=== PATIENT | female | born 1950 | race Caucasian/White ===

== ENCOUNTER 2016-03-09 19:14 | Emergency (ER) | payer OTHER ==
[~2016-03-09] VITALS: Ht 175.3 cm; Wt 117.9 kg
[~2016-03-09 19:14] MED LIST: AMOXICILLIN500 MG PO; AMOXIL 875 MG875 MG PO; AMOXIL500 MG PO; BACTROBAN OINT.22 GM TOP; HCTZ/TRIAMTEREN1 TA3 PO; IBUPROFEN800 MG PO; OSTEO BI-FLEX 21 TAB PO; PROAIR HFA0.09 MG/Ac; VICODIN 300 MG-1 TAB PO
--- NOTE | 2016-03-09 21:00 | ED GENERAL ADULT ---
History of Present Illness General Chief Complaint: General Adult Stated Complaint: ?HIGH BLOOD PRESSURE Source: patient Exam Limitations: no limitations Vital Signs & Intake/Output Vital Signs & Intake/Output Vital Signs Date Time Temp Pulse Resp B/P Pulse O2 O2 Flow FiO2 Ox Delivery Rate 03/09 2150 87 144/72 03/097 97.3 96 20 180/102 97 Room Air ED Intake and Output 03/10 0000 03/09 1200 Intake Total Output Total Balance Patient 260 lb Weight Allergies Coded Allergies: MDX - Acetaminophen (From PERCOCET) (UNKNOWN 06/28/13) MDX - Aspirin (From PERCODAN) (UNKNOWN 06/28/13) MDX - Oxycodone (From PERCOCET) (UNKNOWN 06/28/13) MDX - Tetracycline (TETRACYCLINE) (UNKNOWN 06/28/13) Reconcile Medications Albuterol Sulfate (Proair Hfa) 0.09 MG/Actuation DEDE COUGH (Reported) Amoxicillin 500 MG CAPSULE 1 TAB PO TID INFECTION (Reported) Amoxicillin (Amoxil) 500 MG CAP 1 TAB PO TID FINGER INFECTION Chondroitin Sulfate/Glucosam (Osteo Bi-Flex 200 MG-250 MG) 1 TAB TAB 1 TAB PO DAILY JOINTS (Reported) Ibuprofen 800 MG TABLET 1 TAB PO Q8P PRN PAIN (Reported) Sulfamethoxazole/Trimethoprim (Bactrim Ds Tablet) 800 MG-160 MG TABLET 1 TAB PO BID UTI TRIAMTERENE/HYDROCHLOROTHIAZID (Triamterene-Hctz 37.5-25 MG Tb) 37.5 MG-25 MG TABLET 0.5 TAB PO DAILY BP (Reported) Triage Note: PT IS REQUESTING EVALUATION DUE TO HIGH BLOOD PRESSURE. SHE RANDOMLY CHECKED IT AT [facility] AND IT WAS 96 DIASTOLIC. HERE AT THE ED SHE IS 180/102. DENIED HEADACHES. SHE IS CURRENLTY ON ANTI-HYPERTENSIVES AND HAS BEEN TAKING THEM PRESCRIBED. Triage Nurses Notes Reviewed? yes Onset: Abrupt Duration: day(s): (2) Timing: multiple episodes today Injury Environment: home Severity: moderate No Modifying Factors: none Associated Symptoms: URINARY FREQUENCY, NECK PAIN, LEG SWELLING HPI: This is a 65-year-old female who presents to the ER for chief complaint of elevated blood pressure. She states that she is also worried about MRSA infection. She's been having dysuria and frequency with past 2 days. She states that ever since she went on a combination of triamterene and hydrochlorothiazide that her bladder does not handle it well. History of previous MRSA infections which makes the patient nervous. She also complains of some chronic and chronic neck pain. No fever or chills. She complains of increased fluid retention in her lower extremities. The patient follows up routinely with Dr. Lyn. Going to follow up with Dr. Lyn's office but when she checked her blood pressure at the pharmacy and found it to be high she decided to come to the ER for evaluation instead. Past History Travel History Traveled to [place] past 21 day No Medical History Any Pertinent Medical History? see below for history Neurological: NONE EENT: NONE Cardiovascular: hypertension Respiratory: NONE Gastrointestinal: NONE Hepatic: NONE Renal: NONE Musculoskeletal: chronic back pain Psychiatric: NONE Endocrine: NONE Blood Disorders: NONE Cancer(s): NONE History of CDIFF: No Surgical History Surgical History: non-contributory Psychosocial History What is your primary language Portuguese Tobacco Use: Never used Family History Hx Contributory? No Review of Systems Review of Systems Constitutional: Reports: chills. Denies: fever. EENTM: Reports: no symptoms. Respiratory: Denies: cough, short of breath, sputum production. Cardiovascular: Denies: chest pain. GI: Reports: no symptoms. Genitourinary: Reports: dysuria, frequency, urgency. Denies: pain. Musculoskeletal: Reports: no symptoms. Skin: Reports: no symptoms. Neurological/Psychological: Reports: anxiety. Hematologic/Endocrine: Reports: polyuria. Denies: bruising, bleeding, polydipsia. Immunologic/Allergic: Denies: splenectomy. All Other Systems: Reviewed and Negative Physical Exam Physical Exam General Appearance: well developed/nourished, alert, awake, anxious, mild distress, obese Head: atraumatic, normal appearance Eyes: Bilateral: normal appearance, PERRL, EOMI. Ears, Nose, Throat: normal pharynx, normal ENT inspection, hearing grossly normal Neck: normal inspection, supple, full range of motion Respiratory: normal breath sounds, chest non-tender, no respiratory distress Cardiovascular: regular rate/rhythm Peripheral Pulses: 2+ radial (R), 2+ radial (L) Gastrointestinal: normal bowel sounds, soft, non-tender Extremities: swelling (2+ BILATERAL) Neurologic/Psych: awake, alert, oriented x 3, ANXIOUS Skin: intact, normal color, warm/dry Core Measures ACS in differential dx? No CVA/TIA Diagnosis: No Severe Sepsis Present: No Septic Shock Present: No Progress Differential Diagnoses I considered the following diagnoses in my evaluation of the patient: [HTN, UTI, ANXIETY] Plan of Care: Orders Procedure Date/time Status Add-on Test (ER Only) 03/09 2114 Active TROPONIN LEVEL 03/09 2114 Complete COMPREHENSIVE METABOLIC PANEL 03/09 2114 Complete CBC WITHOUT DIFFERENTIAL 03/09 2114 Complete EKG 03/09 2114 Active CULTURE,URINE 03/09 1945 Active URINALYSIS 03/09 1943 Complete Current Medications Sig/Te Start time Last Medication Dose Stop Time Status Admin Acetaminophen 1,000 MG ONCE ONE 03/09 2129 CAN (Ofirmev) 03/09 2143 N/A 1 UNIT (No Carrier) Laboratory Tests 03/09/162128: Anion Gap 9, Estimated GFR > 60, BUN/Creatinine Ratio 21.4, Glucose 120 H, Calcium 8.8, Total Bilirubin 0.6, AST 25, ALT 43, Alkaline Phosphatase 85, Troponin I 0.01, Total Protein 6.0 L, Albumin 3.6, Globulin 2.4, Albumin/ Globulin Ratio 1.5, CBC w Diff NO MAN DIFF REQ, RBC 4.25, MCV 90.2, MCH 30.7, RDW 12.8, MPV 7.9, Gran % 54.7, Lymphocytes % 31.3, Monocytes % 10.9 H, Eosinophils % 2.4, Basophils % 0.7, Absolute Granulocytes 3.7, Absolute Lymphocytes 2.1, Absolute Monocytes 0.7 H, Absolute Eosinophils 0.2, Absolute Basophils 0, PUBS MCHC 34.1 03/09/161945: Urine Color YEL, Urine Clarity HAZY H, Urine pH 6.0, Ur Specific [place] >= 1.030, Urine Protein TRACE H, Urine Ketones NEG, Urine Nitrite POS H, Urine Bilirubin NEG, Urine Urobilinogen 0.2, Ur Leukocyte Esterase SMALL H, Ur Microscopic SEDIMENT EXAMINED, Urine RBC 3-5, Urine WBC 50-75 H, Ur Epithelial Cells MANY H, Urine Hemoglobin SMALL H, Urine Glucose NEG Microbiology 03/09 1945 URINE ROUT: Urine Culture - RECD MANUAL BP 144/72. LABS WNL. EKG WNL. PATIENT WILL BE TREATED FOR UTI. (ROBERT ALCARAZ,JAMAR) Initial ED EKG: NSR Departure Departure Time of Disposition: 2224 Disposition: HOME OR SELF CARE Condition: Stable Clinical Impression Primary Impression: UTI (urinary tract infection) Secondary Impressions: Elevated blood pressure reading Referrals: JENNIFER ALCARAZ,KRISTINE Gagnon (PCP/Family) Additional Instructions: Take the Bactrim as directed. Your prescription is at [facility] in [place]. Follow up with in the office. Return to the ER for any changing or worsening symptoms. Departure Forms: Customer Survey General Discharge Information Prescriptions: Current Visit Scripts Sulfamethoxazole/Trimethoprim (Bactrim Ds Tablet) 1 TAB PO BID #14 TAB Critical Care Note Critical Care Note Critical Care Time: non-applicable
[2016-03-09 21:40] LABS: ABSOLUTE BASOPHIL COUNT 0 /CUMM (0.0-0.2); ABSOLUTE EOSINOPHIL COUNT 0.2 /CUMM (0.0-0.7); ABSOLUTE GRANULOCYTE CT 3.7 /CUMM (1.4-6.5); ABSOLUTE LYMPH COUNT 2.1 /CUMM (1.2-3.4); ABSOLUTE MONOCYTE COUNT 0.7 /CUMM (0.10-0.60); BASOPHIL % 0.7 % (0.0-2.0); EOSINOPHIL % 2.4 % (0-5); GRANULOCYTE % 54.7 % (42.2-75.2); HEMATOCRIT 38.3 % (37-47); MEAN CORPUSCULAR HGB 30.7 PG (27.0-31.0); MEAN CORPUSCULAR HGB CONC 34.1 G/DL (33.0-37.0); MEAN CORPUSCULAR VOLUME 90.2 FL (81.0-99.0); MEAN PLATELET VOLUME 7.9 FL (7.4-10.4); PLATELET COUNT 145 /CUMM (130-400); RBC DISTRIBUTION WIDTH 12.8 % (11.5-14.5); RED BLOOD CELL CT 4.25 /CUMM (4.20-5.40); WHITE BLOOD CELL COUNT 6.8 /CUMM (4.8-10.8)
[2016-03-09 21:50] VITALS: BP 144/72
[2016-03-09] MEDS ORDERED: BACTRIM DS TAB1 EACH PO (22:26)
== END 2016-03-09 22:44 ==
LOC: ERH 19:14
PROVIDERS: Emergency Medicine
DX: R03.0 Elevated blood-pressure reading, without diagnosis of hypertension (principal); N39.0 Urinary tract infection, site not specified
CPT/HCPCS: 81001; 87086; 93005; 93010; J0131

== ENCOUNTER 2016-03-26 14:57 | Emergency (ER) | payer OTHER ==
[~2016-03-26] VITALS: Ht 175.3 cm; Wt 113.4 kg
[~2016-03-26 14:57] MED LIST changes: +BACTRIM DS TAB1 EACH PO
--- NOTE | 2016-03-26 16:34 | ED CARDIAC/CP/PALPITATIONS ---
See Addendum History of Present Illness General Chief Complaint: General Adult Stated Complaint: ?HIGH BLOOD PRESSURE? Source: patient Exam Limitations: no limitations Allergies Coded Allergies: MDX - Acetaminophen (From PERCOCET) (UNKNOWN 06/28/13) MDX - Aspirin (From PERCODAN) (UNKNOWN 06/28/13) MDX - Oxycodone (From PERCOCET) (UNKNOWN 06/28/13) MDX - Tetracycline (TETRACYCLINE) (UNKNOWN 06/28/13) Reconcile Medications Albuterol Sulfate (Proair Hfa) 0.09 MG/Actuation DEDE COUGH (Reported) Amoxicillin 500 MG CAPSULE 1 TAB PO TID INFECTION (Reported) Amoxicillin (Amoxil) 500 MG CAP 1 TAB PO TID FINGER INFECTION Chondroitin Sulfate/Glucosam (Osteo Bi-Flex 200 MG-250 MG) 1 TAB TAB 1 TAB PO DAILY JOINTS (Reported) Ibuprofen 800 MG TABLET 1 TAB PO Q8P PRN PAIN (Reported) Nitrofurantoin Monohyd/M-Cryst (Macrobid 100 MG Capsule) 100 MG CAPSULE 1 CAP PO BID UTI with food Sulfamethoxazole/Trimethoprim (Bactrim Ds Tablet) 800 MG-160 MG TABLET 1 TAB PO BID UTI TRIAMTERENE/HYDROCHLOROTHIAZID (Triamterene-Hctz 37.5-25 MG Tb) 37.5 MG-25 MG TABLET 0.5 TAB PO DAILY BP (Reported) Triage Note: PT STATES HER BP IS HIGH AND SHE HASN'T FELT GOOD FOR A WEEK. PT WAS HERE 10 DAYS AGO AND PLACED ON ABX FOR UTI. PT CALLED HER PCP STATES SHE FEELS BETTER BUT SHE STILL FEELS LIKE SHE HAS A UTI. PT STATES SHE FINISHED HER ABX. Triage Nurses Notes Reviewed? yes HPI: This patient is a 65 year-old female with a past medical history including hypertension and chronic back pain who presented to the emergency department today for multiple complaints. The patient reported that a couple weeks ago she was diagnosed with a urinary tract infection for which she recently finished her course of Bactrim. She reported that the Bactrim did seem to help, but that she is still having symptoms such as urgency and pressure. She denied any blood in the urine or urinary burning. The patient reported, "I had a MRSA infection which went through my body. I think I must have breathed it in and it causes recurrent bladder infections." She reported that several days ago she was having intermittent lower back pain, "so I think it is in my kidneys." She denied any current lower back pain. The patient reported that her blood pressure has been running high. She reported that she was seen here in the emergency department for this previously. She reported that her blood pressure usually goes up when her urine infection is back. She reported that she is feeling weak. She reported that her body seems, "swollen." She reported, "I just don't feel well." she denied any chest pain, difficulty breathing, fevers. She did report chills. She denied any abdominal pain. She reported intermittent nausea with no vomiting. (JAMES ESPANA PA-C) Vital Signs & Intake/Output Vital Signs & Intake/Output Vital Signs Date Time Temp Pulse Resp B/P Pulse O2 O2 Flow FiO2 Ox Delivery Rate 03/26 1945 98.2 80 22 145/78 97 03/26 1502 98.8 94 16 169/82 96 Room Air ED Intake and Output 03/27 0000 03/26 1200 Intake Total Output Total Balance Patient 250 lb Weight Past History Travel History Traveled to [place] past 21 day No Medical History Any Pertinent Medical History? see below for history Neurological: NONE EENT: NONE Cardiovascular: hypertension Respiratory: NONE Gastrointestinal: NONE Hepatic: NONE Renal: NONE Musculoskeletal: chronic back pain Psychiatric: NONE Endocrine: NONE Blood Disorders: NONE Cancer(s): NONE History of CDIFF: No Surgical History Surgical History: non-contributory Psychosocial History What is your primary language Italian Tobacco Use: Quit >30 days ago ETOH Use: denies use Illicit Drug Use: denies illicit drug use Family History Hx Contributory? No (JAMES ESPANA PA-C) Review of Systems Review of Systems Constitutional: Reports: see HPI. EENTM: Reports: no symptoms. Respiratory: Reports: no symptoms. Cardiovascular: Reports: no symptoms. GI: Reports: see HPI. Genitourinary: Reports: see HPI. Musculoskeletal: Reports: see HPI. Skin: Reports: no symptoms. Neurological/Psychological: Reports: no symptoms. All Other Systems: Reviewed and Negative (JAMES ESPANA PA-C) Physical Exam Physical Exam Cardiovascular: regular rate/rhythm, normal peripheral pulses, no JVD. No carotid bruits. No murmurs, rubs or gallops Comments: Well-developed well-nourished person in no acute distress HEENT: Normal EENT exam, head normocephalic, moist mucous membranes PERRLA bilaterally. No papilledema on funduscopic examination Neck: Supple. No lymphadenopathy. Full range of motion. No midline tenderness Back: Normal gait. Normal inspection. No CVA tenderness bilaterally Respiratory: Chest nontender. No respiratory distress. Speaking in full sentences. Lungs clear to auscultation bilaterally with no wheezes, rales, or rhonchi Abdomen: Soft, nontender and nondistended Extremity: Normal and equal pulses. Neuro: Alert oriented x3, cranial nerves II through XII grossly intact. Skin: No appreciable rash on exposed skin, skin is warm and dry. Psych: Mood and affect is normal Core Measures ACS in differential dx? Yes Severe Sepsis Present: No Septic Shock Present: No (JOVI LEW,JAMES) Progress Differential Diagnosis: AMI, aortic dissection, atrial fibrillation, CHF/pulm edema, costochondritis, hyperkalemia, hyperthyroid, hyperventilation, musculoskeletal pain, myocarditis, pancreatitis, pericarditis, pneumonia, PSVT, PUD/GERD, PVCs/PACs, unstable angina, urinary tract infection, pyelonephritis Diagnostic Imaging: Viewed by Me: Radiology Read. Discussed w/RAD: Radiology Read. CXR Impression: PATIENT: MELISSA MARTINEZ PRESENT AGE: 65 PATIENT ACCOUNT NO: [id number] : 52 LOCATION: [facility] ORDERING PHYSICIAN: JAMES ESPANA PA-C SERVICE DATE: 03/26/16 EXAM TYPE: RAD - XRY-CHEST XRAY, PA AND LATERAL EXAMINATION: XR CHEST CLINICAL INFORMATION: Left arm pain. COMPARISON: None TECHNIQUE: 2 views of the chest were obtained. FINDINGS: The cardiomediastinal silhouette is within normal limits. There are low lung volumes , though no airspace opacities are visible. There is no obvious pulmonary vascular congestion. No pleural effusions are seen. The osseous structures are normal. IMPRESSION: No acute process. Low lung volumes. DICTATED BY: RONNA URBINA MD DATE/TIME DICTATED:03/26/161726 DAIRY INSPECTOR:JOSE DATE/ TIME TRANSCRIBED:03/26/161726 CONFIDENTIAL, DO NOT COPY WITHOUT APPROPRIATE AUTHORIZATION. <Electronically signed in Other Vendor System> SIGNED BY: RONNA URBINA MD 03/26/16 1731 Initial ED EKG: normal intervals, 81 bpm, no significant change from prior EKG Comments: 03/26/2016 7:08:33 PM: I was at the patient's bedside updated her on her laboratory studies. Unremarkable chest x-ray. No increase in white blood cell count. Troponin not elevated. EKG unchanged from prior. Persistent urinary tract infection. The patient is requesting to speak with someone regarding her social situation. She is reporting that she is currently living out of her car and is having a hard time taking care of herself and her family. Case management is currently at the patient's bedside for evaluation. (JOVI LEW,JAMES) Plan of Care: Orders Procedure Date/time Status CULTURE,URINE 03/26 1622 Active BLOOD CULTURE 03/26 1622 Active URINALYSIS 03/26 1622 Complete THYROID STIMULATING HORMONE 03/26 162 Complete TROPONIN LEVEL 03/26 162 Complete MAGNESIUM 03/26 162 Complete LIPID PANEL 03/26 1622 Complete LACTIC ACID 03/26 1623 Complete FREE T4 03/26 1622 Complete COMPREHENSIVE METABOLIC PANEL 03/26 1623 Complete CBC WITHOUT DIFFERENTIAL 03/26 1622 Complete B-TYPE NATRIURETIC PEP (BNP) 03/26 1623 Complete EKG 03/26 1623 Active Laboratory Tests 03/26/16 1923: Lactic Acid Cancelled 03/26/16 1720: Anion Gap 8, Estimated GFR > 60, BUN/Creatinine Ratio 15.0, Glucose 106 H, Lactic Acid 0.9, Calcium 8.8, Magnesium 1.9, Total Bilirubin 0.5, AST 31, ALT 50 , Alkaline Phosphatase 79, Troponin I < 0.01, Snb-S-Hbwfroopcve Pept 35.1, Total Protein 6.3, Albumin 3.8, Globulin 2.5, Albumin/Globulin Ratio 1.5, Triglycerides 152 H, Cholesterol 184, LDL Cholesterol, Calc 112, HDL Cholesterol 42, Cholesterol/HDL Ratio 4, TSH 1.490, Free T4 0.93, CBC w Diff NO MAN DIFF REQ, RBC 4.36, MCV 90.7, MCH 30.2, RDW 13.1, MPV 8.4, Gran % 54.0, Lymphocytes % 33.3, Monocytes % 9.9 H, Eosinophils % 2.0, Basophils % 0.8, Absolute Granulocytes 3.3, Absolute Lymphocytes 2.0, Absolute Monocytes 0.6, Absolute Eosinophils 0.1, Absolute Basophils 0, PUBS MCHC 33.3 03/26/16 1630: Urine Color YEL, Urine Clarity CLEAR, Urine pH 6.0, Ur Specific [place] >= 1.030 , Urine Protein TRACE H, Urine Ketones TRACE H, Urine Nitrite NEG, Urine Bilirubin NEG, Urine Urobilinogen 0.2, Ur Leukocyte Esterase SMALL H, Ur Microscopic SEDIMENT EXAMINED, Urine RBC 1-3, Urine WBC 5-10 H, Ur Epithelial Cells FEW, Urine Hemoglobin SMALL H, Urine Glucose NEG Microbiology 03/26 1747 BLOOD: Blood Culture - RECD 03/26 1720 BLOOD: Blood Culture - RECD 03/26 1630 URINE ROUT: Urine Culture - RECD Departure Departure Disposition: HOME OR SELF CARE Condition: Stable Clinical Impression Primary Impression: Urinary tract infection Qualifiers: Urinary tract infection type: site unspecified Hematuria presence: without hematuria Qualified Code: N39.0 - Urinary tract infection, site not specified Referrals: JENNIFER ALCARAZ,KRISTINE Gagnon (PCP/Family) Additional Instructions: Take antibiotics as prescribed and for its full duration. Please follow-up with your primary care physician. Return to the emergency department for any worsening symptoms or concerns. Departure Forms: Customer Survey General Discharge Information Prescriptions: Current Visit Scripts Nitrofurantoin Monohyd/M-Cryst (Macrobid 100 MG Capsule) 1 CAP PO BID #14 CAP with food (JAMES ESPANA PA-C) PA/RESTAURANT TEAM MEMBER Co-Sign Statement Statement: ED Attending supervision documentation- x I saw and evaluated the patient. I have also reviewed all the pertinent lab results and diagnostic results. I agree with the findings and the plan of care as documented in the PA's/RESTAURANT TEAM MEMBER's documentation. [] I have reviewed the ED Record and agree with the PA's/RESTAURANT TEAM MEMBER's documentation. [] Additions or exceptions (if any) to the PAs/RESTAURANT TEAM MEMBER's note and plan are summarized below: [] (TOM ALCARAZ,TAURUS) Critical Care Note Critical Care Note Critical Care Time: non-applicable (JAMES ESPANA PA-C)
--- NOTE | 2016-03-26 17:31 | RADIOLOGY REPORT ---
EXAMINATION: XR CHEST CLINICAL INFORMATION: Left arm pain. COMPARISON: None TECHNIQUE: 2 views of the chest were obtained. FINDINGS: The cardiomediastinal silhouette is within normal limits. There are low lung volumes, though no airspace opacities are visible. There is no obvious pulmonary vascular congestion. No pleural effusions are seen. The osseous structures are normal. IMPRESSION: No acute process. Low lung volumes.
[2016-03-26 17:35] LABS: ABSOLUTE BASOPHIL COUNT 0 /CUMM (0.0-0.2); ABSOLUTE EOSINOPHIL COUNT 0.1 /CUMM (0.0-0.7); ABSOLUTE GRANULOCYTE CT 3.3 /CUMM (1.4-6.5); ABSOLUTE MONOCYTE COUNT 0.6 /CUMM (0.10-0.60); BASOPHIL % 0.8 % (0.0-2.0); HEMATOCRIT 39.5 % (37-47); MEAN CORPUSCULAR HGB 30.2 PG (27.0-31.0); MEAN CORPUSCULAR HGB CONC 33.3 G/DL (33.0-37.0); MEAN CORPUSCULAR VOLUME 90.7 FL (81.0-99.0); MEAN PLATELET VOLUME 8.4 FL (7.4-10.4); PLATELET COUNT 164 /CUMM (130-400); RBC DISTRIBUTION WIDTH 13.1 % (11.5-14.5); RED BLOOD CELL CT 4.36 /CUMM (4.20-5.40)
[2016-03-26] MEDS ORDERED: MACROBID 100 M100 MG PO (19:14)
--- NOTE | 2016-03-26 19:30 | NUR ---
Case Mgmnt TSF: I met with patient at request of Pa & RN. Patient explained to me that she has been living in her car for the majority of 3 years in her car. She has been trying to find housing and some help through multiple agencies but is having a difficult time. Per the patient, she is saying it is starting to affect her health. At times she is able to stay at a hotel or at family/friends houses but it is not a consistent thing. She has worked with [employer] in [place] and they helped her fill out a [employer] Verification form but was told it was filled out incorrectly. She has tried multiple calls but is not getting anywhere. She has also tried [employer] but has not been successful there as well. Someone had mentioned the [employer] out of [place] but she has not had luck with that either. Patient's primary care is Dr. Lyn and she has been aware of the situation, per patient. I let patient know I would reach out to [employer] and ask them to call her. Patient's cell #[phone]. Patient is just looking for some help to get her back on her feet. CM will make referral for follow up.
[2016-03-26 19:45] VITALS: BP 145/78
== END 2016-03-26 19:45 ==
LOC: ERH 14:57
PROVIDERS: Physician Assistant
DX: N39.0 Urinary tract infection, site not specified (principal); M54.5 Low back pain; I10 Essential (primary) hypertension; Z87.891 Personal history of nicotine dependence
CPT/HCPCS: 81001; 87040; 87086; 93005; 93010

== ENCOUNTER 2016-04-01 20:38 | Emergency (ER) | payer OTHER ==
[~2016-04-01] VITALS: Ht 175.3 cm; Wt 113.4 kg
[~2016-04-01 20:38] MED LIST changes: +MACROBID 100 M100 MG PO
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
[2016-04-02] VITALS: BP 142/90
[2016-04-02] MEDS ORDERED: CEPHALEXIN500 M3 PO (00:23)
== END 2016-04-02 ==
LOC: ERH 20:38
DX: T36.91XA Poisoning by unspecified systemic antibiotic, accidental (unintentional), initial encounter (principal); R19.7 Diarrhea, unspecified

== ENCOUNTER 2016-04-12 19:48 | Emergency (ER) | payer OTHER ==
[~2016-04-12] VITALS: Ht 175.3 cm; Wt 113.4 kg
[~2016-04-12 19:48] MED LIST changes: +CEPHALEXIN500 M3 PO
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
[2016-04-12] MEDS ORDERED: IBUPROFEN600 M1 PO (22:31)
[2016-04-12] MEDS ORDERED: BACTRIM DS TAB1 EACH PO (22:31)
[2016-04-12] MEDS ORDERED: BACTROBAN15 GM TOP (22:55)
[2016-04-12 22:57] VITALS: BP 188/89
== END 2016-04-12 22:58 ==
LOC: ERH 19:48
DX: S09.90XA Unspecified injury of head, initial encounter (principal); N39.0 Urinary tract infection, site not specified; R21 Rash and other nonspecific skin eruption; W22.8XXA Striking against or struck by other objects, initial encounter; Y93.89 Activity, other specified; Y92.9 Unspecified place or not applicable
CPT/HCPCS: 81001; 87086

== ENCOUNTER 2016-05-28 18:37 | Emergency (ER) | payer OTHER ==
[~2016-05-28 18:37] MED LIST changes: +BACTROBAN15 GM TOP; +IBUPROFEN600 M1 PO
--- NOTE | 2016-05-28 19:47 | ED GI/GU/ABDOMINAL COMPLAINT ---
History of Present Illness General Chief Complaint: Abdominal Pain/Flank Pain Stated Complaint: PT ABDOMINAL PAIN WAS HERE LAST WEEK Source: patient Exam Limitations: no limitations Vital Signs & Intake/Output Vital Signs & Intake/Output Vital Signs Date Time Temp Pulse Resp B/P B/P Pulse O2 O2 Flow FiO2 Mean Ox Delivery Rate 05/28 2203 98.2 91 16 158/92 98 Room Air 05/28 1927 Room Air 05/28 1849 97.8 94 16 198/81 97 Room Air Allergies Coded Allergies: aspirin (From PERCODAN) (Intermediate, GI UPSET 04/01/16) oxycodone (From PERCODAN) (Intermediate, GI UPSET 04/01/16) tetracycline (Mild, RASH 04/01/16) acetaminophen (From PERCOCET) (RASH 05/28/16) Reconcile Medications Ibuprofen 600 MG TABLET 1 TAB PO TID PRN pain with food Mupirocin Calcium (Bactroban) 2 % CREAM..G. 1 KATIE TOP TID intra nasally apply to affected area(s) x 7 days Sulfamethoxazole/Trimethoprim (Bactrim Ds Tablet) 800 MG-160 MG TABLET 1 TAB PO BID uti Triage Note: PT STATES SHE WAS SEEN HERE 3 WEEKS AGO FOR BLADDER INFECTION AND TOOK ALL MEDS PRESCRIBED PT STATES SHE IS HAVING DIGESTION PROBLEMS AROUND "HER NAVEL AREA". PT REPORTS SWELLING AROUND HER ABD. Triage Nurses Notes Reviewed? yes ? N Is pt currently ? No Onset: Abrupt Duration: day(s):, constant, continues in ED Timing: recent history Quality/Severity: moderate, sharpness, severe Location: epigastric Radiation: no radiation (THE) No Modifying Factors: none HPI: 65-year-old female comes into emergency room for further evaluation of abdominal swelling as she describes it. Some associated nausea. Decreases in bowel movements. Denies any fever or chills. Denies any other associated symptoms. Nothing seems to make the symptoms better or worse. (LI MENJIVAR) Past History Travel History Traveled to [place] past 21 day No Medical History Any Pertinent Medical History? see below for history Neurological: NONE EENT: NONE Cardiovascular: hypertension Respiratory: NONE Gastrointestinal: NONE Hepatic: NONE Renal: UTI'S Musculoskeletal: chronic back pain, MRSA RESPIRATORY AND GI Psychiatric: NONE Endocrine: NONE Blood Disorders: NONE Cancer(s): NONE ER NURSE/Reproductive: NONE History of CDIFF: No Surgical History Surgical History: non-contributory Psychosocial History What is your primary language Citizen Of [place] Tobacco Use: Never used ETOH Use: denies use Illicit Drug Use: denies illicit drug use Family History Hx Contributory? No (LI MENJIVAR) Review of Systems Review of Systems Constitutional: Reports: no symptoms. EENTM: Reports: no symptoms. Respiratory: Reports: no symptoms. Cardiovascular: Reports: no symptoms. GI: Reports: see HPI. Genitourinary: Reports: see HPI. Musculoskeletal: Reports: no symptoms. Skin: Reports: no symptoms. Neurological/Psychological: Reports: no symptoms. Hematologic/Endocrine: Reports: no symptoms. Immunologic/Allergic: Reports: no symptoms. All Other Systems: Reviewed and Negative (LI MENJIVAR) Physical Exam Physical Exam General Appearance: well developed/nourished, no apparent distress, alert Head: atraumatic, normal appearance Eyes: Bilateral: normal appearance. Ears, Nose, Throat, Mouth: hearing grossly normal, moist mucous membrane Neck: normal inspection Respiratory: normal breath sounds, no respiratory distress Cardiovascular: regular rate/rhythm Gastrointestinal: soft, tenderness Back: normal inspection Extremities: normal range of motion Neurologic/Psych: awake, alert, oriented x 3, normal gait, normal mood/affect Skin: intact, normal color Core Measures ACS in differential dx? No Severe Sepsis Present: No Septic Shock Present: No (LI MENJIVAR) Progress Differential Diagnosis: appendicitis, biliary colic, bowel obstruction, cholecystitis, diverticulitis, ectopic , gastritis, hepatitis, inflamm bowel dis, intrauterine , kidney stone, June-Kacy tear, ovarian cyst , ovarian torsion, pancreatitis, PID/cervicitis, peptic ulcer, PUD/GERD, perforated viscous, SBO, threatened AB, UTI/pyelo Plan of Care: Orders Procedure Date/time Status URINALYSIS 05/28 1933 Complete TROPONIN LEVEL 05/28 1933 Complete LIPASE 05/28 1933 Complete COMPREHENSIVE METABOLIC PANEL 05/28 1933 Complete CBC WITHOUT DIFFERENTIAL 05/28 1933 Complete EKG 05/28 1933 Active Laboratory Tests 05/28/162112: Urine Color YEL, Urine Clarity HAZY H, Urine pH 6.0, Ur Specific [place] >= 1.030, Urine Protein NEG, Urine Ketones NEG, Urine Nitrite NEG, Urine Bilirubin NEG, Urine Urobilinogen 0.2, Ur Leukocyte Esterase NEG, Ur Microscopic SEDIMENT EXAMINED, Urine RBC RARE, Ur Epithelial Cells RARE, Urine Crystals TALC, Urine Bacteria RARE H, Urine Hemoglobin SMALL H, Urine Glucose NEG 05/28/16 2000: Anion Gap 13, Estimated GFR > 60, BUN/Creatinine Ratio 16.7, Glucose 139 H, Calcium 8.6, Total Bilirubin 0.4, AST 25, ALT 52, Alkaline Phosphatase 73, Troponin I < 0.01, Total Protein 6.0 L, Albumin 3.6, Globulin 2.4, Albumin/ Globulin Ratio 1.5, Lipase 80, CBC w Diff NO MAN DIFF REQ, RBC 4.26, MCV 88.9, MCH 30.3, RDW 13.0, MPV 8.7, Gran % 51.3, Lymphocytes % 36.0, Monocytes % 10.6 H, Eosinophils % 1.7, Basophils % 0.4, Absolute Granulocytes 2.9, Absolute Lymphocytes 2.1, Absolute Monocytes 0.6, Absolute Eosinophils 0.1, Absolute Basophils 0, PUBS MCHC 34.1 Diagnostic Imaging: Viewed by Me: CT Scan. Discussed w/RAD: CT Scan. Radiology Impression: SERVICE DATE: 05/28/16 EXAM TYPE: CAT - CT ABD & PELVIS W/O IV CONTRAS EXAMINATION: CT ABDOMEN AND PELVIS WITHOUT CONTRAST CLINICAL INFORMATION: Abdomen pain COMPARISON: Portions of a chest CT 09/22/13 TECHNIQUE: Multidetector volumetric imaging was performed from the superior aspect of the liver through the pubic symphysis. Sagittal and coronal reformatted images were obtained on the technologist's workstation. DLP: 1493 mGy-cm FINDINGS: LUNG BASES: There are multiple barely perceptible pulmonary nodules in the lung bases. At least some of these were present previously. These could be granulomata LIVER, GALLBLADDER, AND BILIARY TREE: The liver span is 22 cm. This is at least moderately enlarged. There is diffuse low-attenuation. No suspicious focal liver lesion. The gallbladder is contracted. There is no biliary dilation. PANCREAS: No suspicious abnormality SPLEEN: No focal abnormality. The spleen span is 11.9 cm which is within one standard deviation above the mean. ADRENAL GLANDS: No suspicious abnormality KIDNEYS AND URETERS: There is no dilation of the urinary collecting system on either side. There is an exophytic 3.7 cm mass arising from the lateral left kidney. This has fluid attenuation. No definite ureteral calculus. BLADDER: The bladder is nearly empty. This makes assessment difficult. This may account for some generalized bladder wall thickening. GASTROINTESTINAL TRACT: No localized colonic wall thickening. The appendix is normal. There is no significant small bowel dilation. No suspicious abnormality the stomach. There may be a tiny sliding- type hiatal hernia. ABDOMINAL WALL: Mild eventration at the level of the umbilicus. Some fat protrudes into the inguinal canal. LYMPH NODES: Nonspecific inguinal lymph nodes. No measurably enlarged abdominal or pelvic lymph nodes. There are nonenlarged peripancreatic and periportal lymph nodes. No free intraperitoneal fluid VASCULAR: There is no abdominal aortic aneurysm PELVIC VISCERA: The uterus is retroverted. No suspicious adnexal mass. OSSEOUS STRUCTURES: Degenerative changes in the spine. IMPRESSION: No acute abnormality. Enlarged fatty liver. No evidence of biliary, gastrointestinal or urinary obstruction Innumerable barely perceptible tiny lung base nodules. These are likely unchanged. These could reflect granulomata DICTATED BY: MILLY AMES MD DATE/TIME DICTATED:05/28/162123 DISABILITY PROGRAM NAVIGATOR:JOSE Initial ED EKG: normal intervals, normal p-waves, normal QRS complex, normal sinus rhythm, rate (78) Comments: 05/28/2016 10:38:15 PM Patient clinically looks well. Patient is nontoxic-appearing. Patient is in no apparent distress. Patient resting comfortably in room. Patient will follow up with her primary care doctor. Return if any concerns worsening symptoms. Patient understands and agrees with plan of care. (ABDIRIZAK FUCHS,LI) Departure Departure Disposition: HOME OR SELF CARE Condition: Stable Clinical Impression Primary Impression: Abdominal pain Referrals: JENNIFER ALCARAZ,KRISTINE Gagnon (PCP/Family) Additional Instructions: If urinary symptoms do not resolve in the next 3 days fill prescription for Bactrim. Follow-up with your primary care doctor. Return if any concerns. Please go over all results of today's visit with your primary care doctor. Contact your primary care doctor to let them know you were here in the emergency room. There may be nonspecific findings which may not be related to your visit today here in the emergency room but may require further evaluation and chronic monitoring by your primary care doctor. If you had a laceration today the chance of foreign body always remains. You should follow-up with your primary care doctor for recheck in 3-5 days for a wound check. If you had an x-ray done there is a chance that a fracture could have been missed on initial read and you should follow-up with your primary care doctor for repeat x-rays if symptoms persist. If your blood pressure was elevated here in the emergency room please have rechecked by her primary care doctor within the next 48 hours by your primary care doctor. If you were prescribed a narcotic here in the emergency room or any type of controlled substances you're not allowed to drive while taking this medication or operate any type of heavy machinery. Narcotics can make you feel lightheaded dizziness nausea and can cause constipation. You may need to spanish moss picker a stool softener. Thank you for choosing [facility] emergency room. Please return to the emergency room immediately if you have any other concerns worsening of symptoms. Departure Forms: Customer Survey General Discharge Information Prescriptions: Current Visit Scripts Sulfamethoxazole/Trimethoprim (Bactrim Ds Tablet) 1 TAB PO BID #14 TAB (LI MENJIVAR) PA/DIESEL POWER MECHANIC Co-Sign Statement Statement: ED Attending supervision documentation- x I saw and evaluated the patient. I have also reviewed all the pertinent lab results and diagnostic results. I agree with the findings and the plan of care as documented in the PA's/DIESEL POWER MECHANIC's documentation. [] I have reviewed the ED Record and agree with the PA's/DIESEL POWER MECHANIC's documentation. [] Additions or exceptions (if any) to the PAs/DIESEL POWER MECHANIC's note and plan are summarized below: [] (TOM ALCARAZ,TAURUS)
[2016-05-28 20:11] LABS: ABSOLUTE BASOPHIL COUNT 0 /CUMM (0.0-0.2); ABSOLUTE EOSINOPHIL COUNT 0.1 /CUMM (0.0-0.7); ABSOLUTE GRANULOCYTE CT 2.9 /CUMM (1.4-6.5); ABSOLUTE LYMPH COUNT 2.1 /CUMM (1.2-3.4); ABSOLUTE MONOCYTE COUNT 0.6 /CUMM (0.10-0.60); BASOPHIL % 0.4 % (0.0-2.0); EOSINOPHIL % 1.7 % (0-5); GRANULOCYTE % 51.3 % (42.2-75.2); HEMATOCRIT 37.9 % (37-47); MEAN CORPUSCULAR HGB 30.3 PG (27.0-31.0); MEAN CORPUSCULAR HGB CONC 34.1 G/DL (33.0-37.0); MEAN CORPUSCULAR VOLUME 88.9 FL (81.0-99.0); MEAN PLATELET VOLUME 8.7 FL (7.4-10.4); PLATELET COUNT 134 /CUMM (130-400); RED BLOOD CELL CT 4.26 /CUMM (4.20-5.40); WHITE BLOOD CELL COUNT 5.8 /CUMM (4.8-10.8)
--- NOTE | 2016-05-28 21:41 | CT SCAN REPORT ---
EXAMINATION: CT ABDOMEN AND PELVIS WITHOUT CONTRAST CLINICAL INFORMATION: Abdomen pain COMPARISON: Portions of a chest CT 09/22/13 TECHNIQUE: Multidetector volumetric imaging was performed from the superior aspect of the liver through the pubic symphysis. Sagittal and coronal reformatted images were obtained on the technologist's workstation. DLP: 1493 mGy-cm FINDINGS: LUNG BASES: There are multiple barely perceptible pulmonary nodules in the lung bases. At least some of these were present previously. These could be granulomata LIVER, GALLBLADDER, AND BILIARY TREE: The liver span is 22 cm. This is at least moderately enlarged. There is diffuse low-attenuation. No suspicious focal liver lesion. The gallbladder is contracted. There is no biliary dilation. PANCREAS: No suspicious abnormality SPLEEN: No focal abnormality. The spleen span is 11.9 cm which is within one standard deviation above the mean. ADRENAL GLANDS: No suspicious abnormality KIDNEYS AND URETERS: There is no dilation of the urinary collecting system on either side. There is an exophytic 3.7 cm mass arising from the lateral left kidney. This has fluid attenuation. No definite ureteral calculus. BLADDER: The bladder is nearly empty. This makes assessment difficult. This may account for some generalized bladder wall thickening. GASTROINTESTINAL TRACT: No localized colonic wall thickening. The appendix is normal. There is no significant small bowel dilation. No suspicious abnormality the stomach. There may be a tiny sliding-type hiatal hernia. ABDOMINAL WALL: Mild eventration at the level of the umbilicus. Some fat protrudes into the inguinal canal. LYMPH NODES: Nonspecific inguinal lymph nodes. No measurably enlarged abdominal or pelvic lymph nodes. There are nonenlarged peripancreatic and periportal lymph nodes. No free intraperitoneal fluid VASCULAR: There is no abdominal aortic aneurysm PELVIC VISCERA: The uterus is retroverted. No suspicious adnexal mass. OSSEOUS STRUCTURES: Degenerative changes in the spine. IMPRESSION: No acute abnormality. Enlarged fatty liver. No evidence of biliary, gastrointestinal or urinary obstruction Innumerable barely perceptible tiny lung base nodules. These are likely unchanged. These could reflect granulomata
[2016-05-28 22:03] VITALS: BP 158/92
[2016-05-28] MEDS ORDERED: BACTRIM DS TAB1 EACH PO (22:11)
== END 2016-05-28 22:16 ==
LOC: ERH 18:37
PROVIDERS: Physician Assistant Medical
DX: R10.13 Epigastric pain (principal)
CPT/HCPCS: 74176; 81001; 93005; 93010

== ENCOUNTER 2016-06-07 20:06 | Emergency (ER) | payer OTHER ==
[~2016-06-07] VITALS: Ht 175.3 cm; Wt 141.5 kg
[2016-06-07 21:28] LABS: ABSOLUTE BASOPHIL COUNT 0 /CUMM (0.0-0.2); ABSOLUTE EOSINOPHIL COUNT 0.1 /CUMM (0.0-0.7); ABSOLUTE GRANULOCYTE CT 3.8 /CUMM (1.4-6.5); ABSOLUTE LYMPH COUNT 2.1 /CUMM (1.2-3.4); ABSOLUTE MONOCYTE COUNT 0.7 /CUMM (0.10-0.60); BASOPHIL % 0.4 % (0.0-2.0); EOSINOPHIL % 1.7 % (0-5); GRANULOCYTE % 55.7 % (42.2-75.2); HEMATOCRIT 38.7 % (37-47); MEAN CORPUSCULAR HGB 30.2 PG (27.0-31.0); MEAN CORPUSCULAR HGB CONC 33.9 G/DL (33.0-37.0); MEAN CORPUSCULAR VOLUME 89.1 FL (81.0-99.0); MEAN PLATELET VOLUME 8.6 FL (7.4-10.4); PLATELET COUNT 148 /CUMM (130-400); RBC DISTRIBUTION WIDTH 12.9 % (11.5-14.5); RED BLOOD CELL CT 4.34 /CUMM (4.20-5.40); WHITE BLOOD CELL COUNT 6.8 /CUMM (4.8-10.8)
--- NOTE | 2016-06-07 22:33 | ED GI/GU/ABDOMINAL COMPLAINT ---
History of Present Illness General Chief Complaint: Abdominal Pain/Flank Pain Stated Complaint: HERE 05/28 W/ ABD. PAIN, STILL WITH PAIN Source: patient, old records Exam Limitations: no limitations Vital Signs & Intake/Output Vital Signs & Intake/Output Vital Signs Date Time Temp Pulse Resp B/P B/P Pulse O2 O2 Flow FiO2 Mean Ox Delivery Rate 06/07 2256 97.9 70 20 158/80 97 Room Air 06/079 97.9 69 22 163/88 95 Room Air ED Intake and Output 06/08 0000 06/07 1200 Intake Total 0 Output Total Balance 0 Intake, Oral 0 Patient 312 lb Weight Weight Reported by Patient Measurement Method Allergies Coded Allergies: oxycodone (From PERCODAN) (Intermediate, GI UPSET 04/01/16) tetracycline (Mild, RASH 04/01/16) Reconcile Medications Dicyclomine Hydrochloride (Bentyl) 10 MG CAPSULE 1 CAP PO TID PRN pain Ibuprofen 600 MG TABLET 1 TAB PO TID PRN pain with food Mupirocin Calcium (Bactroban) 2 % CREAM..G. 1 KATIE TOP TID intra nasally apply to affected area(s) x 7 days Ondansetron (Zofran Odt) 4 MG TAB.RAPDIS 1 TAB SL TID PRN nausea Sulfamethoxazole/Trimethoprim (Bactrim Ds Tablet) 800 MG-160 MG TABLET 1 TAB PO BID uti Triage Note: TRIAGE: PT TO ER C/C ABD PAIN AND DISTENSION. ONSET 4 WKS AGO. INTERMITTENT SINCE ONSET. WAS PRESCRIBED BACTRIM DS AFTER LAST ER VISIT BUT IS UNSURE WHY, "SOMETHING THEY FOUND ON CT SCAN". HAS BEEN HAVING LOOSE STOOLS. +N/-V. DENIES URINARY S/S AT PRESENT BUT HAS HAD FREQUENT UTI'S IN THE PAST. Triage Nurses Notes Reviewed? yes ? n Is pt currently ? No Onset: Abrupt Duration: week(s): (4), constant Timing: recent history Quality/Severity: aching, cramping Severity Numbers: 7 Location: generalized abdomen Radiation: no radiation Activities at Onset: none Prior Abdominal Problems: similar symptoms No Modifying Factors: none Associated Symptoms: denies HPI: 65-year-old female with history of hypertension presents to the ER complaining of generalized abdominal pain loading discomfort that she states has been present for the past 1 month. Intermittent in nature associated with nausea no vomiting no diarrhea no black or bloody stools. Patient reports history of frequent urinary tract infections however denies urinary symptoms today. She was seen here in this ER for the same symptoms 10 days ago with an unremarkable workup. She states she's also been seen by her primary care physician and [place] emergency room with no known cause identified. She states that she has taken Bactrim in the past for these symptoms with improvement. She is not taken anything for pain or nausea (ROBERTA SCHUMACHER) Past History Travel History Traveled to [place] past 21 day No Medical History Any Pertinent Medical History? see below for history Neurological: migraine EENT: NONE Cardiovascular: hypertension Respiratory: NONE Gastrointestinal: NONE Hepatic: NONE Renal: UTI'S Musculoskeletal: chronic back pain, falls, MRSA RESPIRATORY AND GI Psychiatric: NONE Endocrine: NONE Blood Disorders: NONE Cancer(s): NONE CHILD DAY CARE PROVIDER/Reproductive: NONE History of CDIFF: No Surgical History Surgical History: non-contributory Psychosocial History What is your primary language [place] Tobacco Use: Quit >30 days ago ETOH Use: occasional use Illicit Drug Use: denies illicit drug use Family History Hx Contributory? No (ROBERTA SCHUMACHER) Review of Systems Review of Systems Constitutional: Reports: see HPI. All Other Systems: Reviewed and Negative Comments Review of systems: See HPI, All other systems negative. Constitutional, no chills no fever, no malaise HEENT: No visual changes no sore throat no congestion Cardiovascular: No chest pain , no palpitation Skin: no rashes, no change in skin Respiratory: No dyspnea no cough no sputum GI: nausea no vomiting, no diarrhea, : No dysuria Muscle skeletal: No joint pain, no back pain, no neck pain, Neurologic: No numbness, no headache Psych: No stress Heme/endocrine: No bruising no bleeding Immunology: No lymphadenopathy (ROBERTA SCHUMACHER) Physical Exam Physical Exam General Appearance: well developed/nourished, alert, awake Gastrointestinal: soft Comments: Well-developed well-nourished person in no acute distress HEENT: Normal EENT exam; PERRL, EOMI, HEAD is atraumatic. moist mucous membranes. Neck: Supple, normal range of motion Back: Nontender, no CVA tenderness. Full range of motion Cardiovascular: Regular rate and rhythms no murmurs rubs Respiratory: Chest nontender.There were no bony deformities, no asymmetry. No respiratory distress. Patient speaking in full complete sentences. Breath sounds clear to auscultation bilaterally: NO W/R/R Abdomen: Soft, nontender nondistended, no appreciable organomegaly. Normal bowel sounds. No rebound/guarding, No appreciable enlargement of the abdominal aorta, No ascites. Extremity: No edema, full range of motion of extremities Neuro: Alert oriented x3, motor sensory normal, There were no obvious focal neurologic abnormalities. Skin: No appreciable rash on exposed skin, skin is warm and dry. No jaundice no diaphoresis Psych: Mood and affect is normal, memory and judgment is normal. Core Measures ACS in differential dx? No Severe Sepsis Present: No Septic Shock Present: No (AYESHA FUCHS,ROBERTA) Progress Differential Diagnosis: AMI, appendicitis, biliary colic, bowel obstruction, colon cancer, cholecystitis, diverticulitis, endometritis, esophageal varices, gastritis, hepatitis, hernia, ischemic bowel, inflamm bowel dis, kidney stone, June-Kacy tear, pancreatitis, PID/cervicitis, peptic ulcer, PUD/GERD, perforated viscous, SBO, UTI/pyelo Plan of Care: Orders Procedure Date/time Status URINALYSIS 06/07 2013 Complete TROPONIN LEVEL 06/07 2013 Complete LIPASE 06/07 2013 Complete HEPATIC FUNCTION PANEL 06/07 2013 Complete CBC WITHOUT DIFFERENTIAL 06/07 2013 Complete BASIC METABOLIC PANEL 06/07 2013 Complete AMYLASE 06/07 2013 Complete EKG 06/07 2013 Active Laboratory Tests 06/07/16 2212: Urinalysis LIGHT H, Urine Color YEL, Urine Clarity CLEAR, Urine pH 6.0, Ur Specific [place] >= 1.030, Urine Protein NEG, Urine Ketones NEG, Urine Nitrite NEG, Urine Bilirubin NEG, Urine Urobilinogen 0.2, Ur Leukocyte Esterase NEG, Ur Microscopic SEDIMENT EXAMINED, Urine RBC RARE, Urine WBC RARE, Ur Epithelial Cells RARE, Urine Bacteria RARE H, Urine Hemoglobin SMALL H, Urine Glucose NEG 06/07/16 2105: Anion Gap 8, Estimated GFR > 60, BUN/Creatinine Ratio 17.5, Glucose 107 H, Calcium 8.4, Total Bilirubin 0.6, Direct Bilirubin 0.3, AST 29, ALT 48, Alkaline Phosphatase 82, Troponin I < 0.01, Total Protein 6.3, Albumin 3.7, Amylase 53, Lipase 114, CBC w Diff NO MAN DIFF REQ, RBC 4.34, MCV 89.1, MCH 30.2, RDW 12.9, MPV 8.6, Gran % 55.7, Lymphocytes % 31.8, Monocytes % 10.4 H, Eosinophils % 1.7 , Basophils % 0.4, Absolute Granulocytes 3.8, Absolute Lymphocytes 2.1, Absolute Monocytes 0.7 H, Absolute Eosinophils 0.1, Absolute Basophils 0, PUBS MCHC 33.9 Old records reviewed including the patient's previous CAT scan which was performed here 10 days ago I discussed with the patient at length all of their results. I had an extensive conversation regarding need for close follow up with their primary care physician this week as well as return precautions. I answered all of their questions, they feel comfortable with the plan and follow-up care. I discussed the medications that they will receive with the patient. I gave them signs and symptoms that could indicate an adverse reaction. I have advised them to limit their activities until they can see how they respond to the medication. ct 05/28: IMPRESSION: No acute abnormality. Enlarged fatty liver. No evidence of biliary, gastrointestinal or urinary obstruction Innumerable barely perceptible tiny lung base nodules. These are likely unchanged. These could reflect granulomata DICTATED BY: MILLY AMES MD DATE/TIME DICTATED:05/28/162123 WIND SCIENCE AND PLANNING:JOSE DATE/TIME TRANSCRIBED:05/28/162123 (ROBERTA SCHUMACHER) Initial ED EKG: none (ROBERTA SCHUMACHER) Departure Departure Time of Disposition: 2249 Disposition: HOME OR SELF CARE Condition: Stable Clinical Impression Primary Impression: Abdominal pain Referrals: BAUTISTA ALCARAZ,AVIVA RODRIGUEZ MD,KRISTINE Gagnon (PCP/Family) Additional Instructions: bentyl for pain, zofran for nausea. follow up with [facility] as well as derrick engineer dr adams. bland evangelist, these were sent to [facility]. Departure Forms: Customer Survey General Discharge Information Prescriptions: Current Visit Scripts Dicyclomine Hydrochloride (Bentyl) 1 CAP PO TID PRN pain #20 CAP Ondansetron (Zofran Odt) 1 TAB SL TID PRN nausea #10 TAB (ROBERTA SCHUMACHER) PA/LITHOGRAPHIC CAMERA OPERATOR Co-Sign Statement Statement: ED Attending supervision documentation- [] I saw and evaluated the patient. I have also reviewed all the pertinent lab results and diagnostic results. I agree with the findings and the plan of care as documented in the PA's/LITHOGRAPHIC CAMERA OPERATOR's documentation. [x] I have reviewed the ED Record and agree with the PA's/LITHOGRAPHIC CAMERA OPERATOR's documentation. [] Additions or exceptions (if any) to the PAs/LITHOGRAPHIC CAMERA OPERATOR's note and plan are summarized below: [] (CINDY ALCARAZ,YAIMA Fishman)
[2016-06-07] MEDS ORDERED: BENTYL10 M1 PO (22:52)
[2016-06-07] MEDS ORDERED: ZOFRAN ODT4 M1 SL (22:52)
[2016-06-07 22:56] VITALS: BP 158/80
== END 2016-06-07 22:55 ==
LOC: ERH 20:06
PROVIDERS: Pediatrics
DX: R10.84 Generalized abdominal pain (principal)
CPT/HCPCS: 81001; 93005; 93010